=== PATIENT | female | born 1975 | race Caucasian/White ===

== ENCOUNTER 2018-12-18 09:40 | Inpatient (IN) | payer MEDICAID ==
[~2018-12-18] VITALS: Ht 160 cm; Wt 57.6 kg
[2018-12-18] VITALS (17 sets, daily range): BP systolic 93–141; BP diastolic 54–86; BMI 22.7
--- NOTE | 2018-12-18 09:58 | NUR ---
INTUBATED 21 @ THE LIP; BICARB GIVEN @ [phone]
--- NOTE | 2018-12-18 10:00 | NUR ---
TALKED TO BRIAN AT POISON CONTROL. INSTRUCT TO GIVE MEDS TO REVERSE TYLENOL, MONITOR PT FOR TACHACARDIA, AND DECREASED RESP.
[2018-12-18 10:05] LABS: BASOPHILS 0.1 % (0-2); EOSINOPHILS 0.4 % (0-7); HEMATOCRIT 39.4 % (36.0-48.0); HEMOGLOBIN 13.7 g/dL (12-16); IMMATURE GRANULOCYTES 0.1 % (0-5); LYMPHOCYTES 16.2 % (15-50); MCH 33.7 pg (26.0-34.0); MCHC 34.8 g/dL (31.0-37.0); MCV 96.8 fL (80.0-100.0); MEAN PLATELET VOLUME 11.6 fL (7.4-10.4); MONOCYTES 5.9 % (2-11); NEUTROPHILS 77.3 % (40-80); PLATELET COUNT 114 10x3/uL (130-400); RBC 4.07 10x6/uL (4.00-5.40); RDW 13.1 % (11.5-14.5); WBC 6.8 10x3/uL (4.8-10.8)
[2018-12-18 10:22] LABS: ALBUMIN 3.4 g/dL (3.4-5.0); ANION GAP 11.4 mmol/L (8-16); BILIRUBIN - TOTAL 0.16 mg/dL (0.2-1.3); CALCIUM 8.2 mg/dL (8.5-10.1); CARBON DIOXIDE 27.2 mmol/L (21.0-32.0); MAGNESIUM - SERUM 2.2 mg/dL (1.8-2.4); POTASSIUM - SERUM 3.6 mmol/L (3.5-5.1); PROTEIN - SERUM 6.5 g/dL (6.4-8.2)
[2018-12-18 10:32] LABS: UDS - AMPHET NEGATIVE QUAL (NEGATIVE); UDS - BARB POSITIVE QUAL (NEGATIVE); UDS - BENZO POSITIVE QUAL (NEGATIVE); UDS - COCAINE NEGATIVE QUAL (NEGATIVE); UDS - OPIATE NEGATIVE QUAL (NEGATIVE); UDS - PCP NEGATIVE QUAL (NEGATIVE); UDS - THC POSITIVE QUAL (NEGATIVE)
[2018-12-18 10:42] LABS: APPEARANCE CLEAR (CLEAR); BILIRUBIN NEGATIVE (NEGATIVE); COLOR YELLOW (YELLOW); GLUCOSE NEGATIVE (NEGATIVE); KETONE NEGATIVE (NEGATIVE); NITRITE POSITIVE (NEGATIVE); PROTEIN NEGATIVE (NEGATIVE); SPECIFIC GRAVITY 1.015 (1.005-1.020); UROBILINOGEN NORMAL (NORMAL)
[2018-12-18 10:49] LABS: RED CELLS - URINE NONE SEEN /hpf (0-5); WHITE CELLS - URINE 0-5 /hpf (0-5)
[2018-12-18 10:50] LABS: BACTERIA MANY /hpf (NONE SEEN); EPITHELIAL CELLS 0-5 /hpf (0-5)
--- NOTE | 2018-12-18 11:23 | NUR ---
CALLED LAB AND THEY WILL REDRAW TYLENOL LEVEL @ 1200.
--- NOTE | 2018-12-18 11:45 | NUR ---
PATIENT TRANSPORTED TO CT WITH RESPIRATORY STAFF TRACY, RADIOLOGY STAFF ELENA, AND RN JOSEPH. PATIENT ON OXYGEN AND CARDIAC, BP, AND O2 MONITORING. PATIENT THEN TRANSPORTED TO ROOM CV-5.
--- NOTE | 2018-12-18 12:09 | NUR ---
REC'D VIA STRETCHER FROM ER, SEDATED ON VENT S/P INTENTIONAL OD. WARM BLANKET PROVIDED.
[2018-12-18] MEDS ORDERED: LISINOPRIL20 MG PO (12:18)
[2018-12-18] MEDS ORDERED: XANAX1 MG PO (12:19)
[2018-12-18] MEDS ORDERED: PHENERGAN25 M1 PO (12:20)
[2018-12-18] MEDS ORDERED: BUTALB-APAP-CA1 EACH PO (12:21)
[2018-12-18] MEDS ORDERED: LEXAPRO10 MG (12:31)
[2018-12-18] MEDS ORDERED: MAXALT MLT10 MG/TAB PO (12:32)
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
--- NOTE | 2018-12-18 13:00 | NUR ---
FAMILY IN, TEARFUL-EMOTIONAL SUPPORT PROVIDED.
--- NOTE | 2018-12-18 15:00 | NUR ---
AWAKE- FOLLOWS COMMANDS W/ALL EXTREMITIES. OPENS EYES AT REQUEST. COUGHS/ GAGS- WILL TITRATE PROPOFOL- SEE FLOWSHEET.
[2018-12-18 15:11] LABS: INR 1.13 (0.85-1.17)
--- NOTE | 2018-12-18 16:00 | NUR ---
REASSESSED. CALM- PROPOFOL TITRATED UP TO 20 MCG/HR OVER LAST HOUR.
--- NOTE | 2018-12-18 19:30 | NUR ---
PT IS AWAKE AND AGGITATED. PROPOFOL BEING TITRATED FOR SEDATION.
[2018-12-19] VITALS (24 sets, daily range): BP systolic 85–147; BP diastolic 47–94; Ht 160 cm; Wt 57.6 kg
[2018-12-19 04:11] LABS: BASOPHILS 0.1 % (0-2); HEMATOCRIT 36.7 % (36.0-48.0); HEMOGLOBIN 12.5 g/dL (12-16); IMMATURE GRANULOCYTES 0.1 % (0-5); LYMPHOCYTES 22.3 % (15-50); MCH 32.8 pg (26.0-34.0); MCHC 34.1 g/dL (31.0-37.0); MCV 96.3 fL (80.0-100.0); MEAN PLATELET VOLUME 11.8 fL (7.4-10.4); MONOCYTES 6.8 % (2-11); NEUTROPHILS 69.7 % (40-80); PLATELET COUNT 103 10x3/uL (130-400); RBC 3.81 10x6/uL (4.00-5.40); RDW 13.3 % (11.5-14.5)
[2018-12-19 04:31] LABS: ALKALINE PHOSPHATASE 52 U/L (46-116); ALT (SGPT) 16 U/L (10-68); BILIRUBIN - TOTAL 0.24 mg/dL (0.2-1.3); CARBON DIOXIDE 23.4 mmol/L (21.0-32.0); CHLORIDE - SERUM 110 mmol/L (98-107); POTASSIUM - SERUM 3.1 mmol/L (3.5-5.1); PROTEIN - SERUM 5.9 g/dL (6.4-8.2); SODIUM 143 mmol/L (136-145); UREA NITROGEN 11 mg/dL (7-18)
[2018-12-19 04:35] LABS: CALC OSMOLALITY 282 mosm/kg (275-300); CREATININE - SERUM 0.6 mg/dL (0.6-1.3); GLUCOSE 83 mg/dL (74-106); eGFR NON AFRICAN AMERICAN > 90 mL/min (90-120)
--- NOTE | 2018-12-19 08:31 | NUR ---
RECEIVED PT FROM BELEM RAUSCH. PT RESTING IN BED AWAKE AND ALERT ON VENTILATOR CPAP MODE. VSS. WILL CHECK ORDERS.
--- NOTE | 2018-12-19 08:50 | NUR ---
PATIENT EXTUBATED AT THIS TIME. VSS. PT AWAKE ALERT AND ORIENTED.
--- NOTE | 2018-12-19 12:15 | NUR ---
RICHARD NOTIFIED AND SITTER ORDERED. SITTER AT BEDSIDE, NOTIFIED CHARGE NURSE AND ATTENDING IN REGARDS TO ASSESSMENT FINDINGS, RESOURCES GIVEN TO PT AND SAFETY PLAN INITIATED.
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
--- NOTE | 2018-12-19 16:37 | NUR ---
1100 VOICES NO COMPLAINTS
--- NOTE | 2018-12-19 16:39 | NUR ---
1300 SITTER REMAINS AT BEDSIDE
--- NOTE | 2018-12-19 16:39 | NUR ---
1500 SNACK SERVED PATIENT ON REG=ULAR DIET
--- NOTE | 2018-12-19 16:40 | NUR ---
7014 DR BOWEN AT BEDSIDE SPEAKING WITH PATIENT
--- NOTE | 2018-12-19 23:08 | NUR ---
PT ADMITS TO STILL FEELING DEPRESSED AND UNSURE OF SELF. SUICIDAL IDEATION WITHOUT A PLAN AT THIS TIME. DISCUSSED COPING SKILLS WITH PT. SITTER AT BEDSIDE FOR LINE OF SIGHT OBSERVATION.
[2018-12-20] VITALS (8 sets, daily range): BP systolic 116–161; BP diastolic 62–85
--- NOTE | 2018-12-20 01:37 | NUR ---
PATIENT UP TO [facility] TO HAVE BM. STATES SHE IS VERY GASSY AND BLOATED FEELING.
[2018-12-20 05:45] LABS: ALBUMIN 2.9 g/dL (3.4-5.0); ALKALINE PHOSPHATASE 53 U/L (46-116); ALT (SGPT) 18 U/L (10-68); BILIRUBIN - TOTAL 0.45 mg/dL (0.2-1.3); CALC OSMOLALITY 279 mosm/kg (275-300); CALCIUM 8.4 mg/dL (8.5-10.1); CARBON DIOXIDE 20.5 mmol/L (21.0-32.0); CHLORIDE - SERUM 109 mmol/L (98-107); CREATININE - SERUM 0.6 mg/dL (0.6-1.3); GLUCOSE 88 mg/dL (74-106); POTASSIUM - SERUM 3.3 mmol/L (3.5-5.1); PROTEIN - SERUM 6.1 g/dL (6.4-8.2); SODIUM 142 mmol/L (136-145); eGFR NON AFRICAN AMERICAN > 90 mL/min (90-120)
[2018-12-20 05:47] LABS: BASOPHILS 0.1 % (0-2); EOSINOPHILS 0.2 % (0-7); HEMATOCRIT 34.6 % (36.0-48.0); HEMOGLOBIN 11.9 g/dL (12-16); IMMATURE GRANULOCYTES 0.1 % (0-5); LYMPHOCYTES 11.2 % (15-50); MCH 33.2 pg (26.0-34.0); MCHC 34.4 g/dL (31.0-37.0); MCV 96.6 fL (80.0-100.0); MEAN PLATELET VOLUME 11.8 fL (7.4-10.4); NEUTROPHILS 83.4 % (40-80); PLATELET COUNT 95 10x3/uL (130-400); RBC 3.58 10x6/uL (4.00-5.40); RDW 12.9 % (11.5-14.5); UREA NITROGEN 7 mg/dL (7-18); WBC 9.3 10x3/uL (4.8-10.8)
--- NOTE | 2018-12-20 05:47 | NUR ---
PATIENT DENIES ANY NEEDS AT THIS TIME. SITTER IS AT DOORWAY OF PATIENTS ROOM. CALL LIGHT WITHIN REACH.
--- NOTE | 2018-12-20 06:37 | NUR ---
PT IS TEARFUL THIS MORNING AND CONFUSED ABOUT WHAT ALL HAPPENED. SHE STATED THAT SHE DOESN'T REMEMBER EVERYTHING THAT SHE TOOK. SHE STATED THAT SHE JUST TOOK ANYTHING SHE COULD GET HER HANDS ON. PT DENIES SI AND FEELS REMORSE FOR HER ACTIONS. COPING SKILLS DISCUSSED WITH PT. RAJ WILL CONTINUE TO DO LINE OF SIGHT OBERSERVATION.
[2018-12-20 07:02] LABS: PLATELET ESTIMATE DECREASED
--- NOTE | 2018-12-20 09:05 | NUR ---
NUTRITION F/U CHART REVIEWED, PT EXTUBATED AND ON REG DIET. WILL HONOR FOOD PREFERENCES, MONITOR PO INTAKE. RD FOLLOWING
--- NOTE | 2018-12-20 12:20 | MORECARE ---
CASE MANAGEMENT DISCHARGE SUMMARY PATIENT: ANGELA POLK UNIT: [id number] ADM DATE: 12/18/18 AGE: 43 : [birth year] SEX: F ROOM/BED: D.[facility]3 AUTHOR: AURELIA COE PHYSICIAN: REFERRING PHYSICIAN: MATT KUHN MD DATE OF SERVICE: 12/20/18 Discharge Plan Patient Name: ANGELA POLK Facility: [facility]:[place] : 1975 Planned Disposition: Anticipated Discharge Date: Discharge Date: Expected LOS: Initial Reviewer: [email or web address] Initial Review Date: 12/20/2018 Generated: 12/20/18 1:20 pm DCP- Discharge Planning Updated by [email or web address]: Opal Marino on 12/20/18 11:[address] Patient Name: ANGELA MARTINEZ Admission Status: ER Accout number: [id number] Admission Date: 12-18-2018 : 1975 Admission Diagnosis: Attending: MATT KUHN Current LOS: 2 Anticipated DC Date: Planned Disposition: Primary Insurance: MEDICAID [place] Discharge Planning Comments: SOON PATIENT IS MEDICALLY CLEARED I WILL CALL [facility] ADMIT BACK AT [phone] IN ORDER FOR THEM TO FIND PLACEMENT. I HAVE STARTED THE PROCESS. CM TO FOLLOW AND ASSIST. Biodiesel Plant Manager: Opal Marino Patient Name: ANGELA POLK Page 88198 at 1220 All edits/amendments must be made on the electronic document DICTATION DATE: 12/20/18 1220 WHEELCHAIR VAN OPERATOR FIRST RESPONDER: DM 12/20/18 1220 RPT#: [id number] DC DATE: STATUS: ADM IN [place] [address] [place] [address] END OF REPORT
--- NOTE | 2018-12-20 13:48 | MORECARE ---
CASE MANAGEMENT DISCHARGE SUMMARY PATIENT: ANGELA POLK UNIT: [id number] ADM DATE: 12/18/18 AGE: 43 : 76 SEX: F ROOM/BED: D.[facility]3 AUTHOR: AURELIA COE PHYSICIAN: REFERRING PHYSICIAN: MATT KUHN MD DATE OF SERVICE: 12/20/18 Discharge Plan Patient Name: ANGELA POLK Facility: [facility]:[place] : 1975 Planned Disposition: Anticipated Discharge Date: Discharge Date: Expected LOS: Initial Reviewer: [email or web address] Initial Review Date: 12/20/2018 Generated: 12/20/18 2:48 pm DCP- Discharge Planning Updated by [email or web address]: Opal Marino on 12/20/18 11:[address] Patient Name: ANGELA MARTINEZ Admission Status: ER Accout number: [id number] Admission Date: 12-18-2018 : 1975 Admission Diagnosis: Attending: MATT KUHN Current LOS: 2 Anticipated DC Date: Planned Disposition: Primary Insurance: MEDICAID [place] Discharge Planning Comments: SOON PATIENT IS MEDICALLY CLEARED I WILL CALL [facility] ADMIT BACK AT [phone] IN ORDER FOR THEM TO FIND PLACEMENT. I HAVE STARTED THE PROCESS. CM TO FOLLOW AND ASSIST. Intervention Specialist: Opal Marino External Providers External Provider: OTHER-OTHER Next Contact Date: Service Request Date: Service Type: Resolution: Reviewer: Comments: Last DP export: 12/20/18 11:20 am Patient Name: ANGELA POLK Page 70895 at 1348 All edits/amendments must be made on the electronic document DICTATION DATE: 12/20/18 1348 PHYSICAL THERAPIST ASSISTANT: ЕКАТЕРИНА 12/20/18 1348 RPT#: [id number] DC DATE: STATUS: ADM IN [facility] [address] [place] [address] END OF REPORT
--- NOTE | 2018-12-20 13:58 | MORECARE ---
CASE MANAGEMENT DISCHARGE SUMMARY PATIENT: ANGELA POLK UNIT: [id number] ADM DATE: 12/18/18 AGE: 43 : [birth year] SEX: F ROOM/BED: D.2313 AUTHOR: AURELIA COE PHYSICIAN: REFERRING PHYSICIAN: MATT KUHN MD DATE OF SERVICE: 12/20/18 Discharge Plan Patient Name: ANGELA POLK Facility: [facility]:[place] : 1975 Planned Disposition: Anticipated Discharge Date: Discharge Date: Expected LOS: Initial Reviewer: [email or web address] Initial Review Date: 12/20/2018 Generated: 12/20/18 2:58 pm Comments DCP- Discharge Planning Updated by [email or web address]: Opal Marino on 12/20/18 12:[address] Patient Name: ANGELA MARTINEZ Admission Status: ER Accout number: [id number] Admission Date: 12-18-2018 : 1975 Admission Diagnosis: Attending: MATT KUHN Current LOS: 2 Anticipated DC Date: Planned Disposition: Primary Insurance: MEDICAID [place] Discharge Planning Comments: SOON PATIENT IS MEDICALLY CLEARED I WILL CALL EASY ADMIT BACK AT [phone] IN ORDER FOR THEM TO FIND PLACEMENT. I HAVE STARTED THE PROCESS. CM TO FOLLOW AND ASSIST. Juvenile Counselor: Opal Marino Appended by Opal Marino on 12/20/2018 13:49 CDT: CM FAXED DOCUMENTS TO [facility] AT [phone] AND THEY ARE WORKING ON FINDING PSYCH PLACEMENT. CM TO FOLLOW AND ASSIST . Last DP export: 12/20/18 12:48 pm Patient Name: ANGELA POLK Page 73910 at 1358 All edits/amendments must be made on the electronic document DICTATION DATE: 12/20/18 1358 INVESTIGATOR CLAIMS: ЕКАТЕРИНА 12/20/18 1358 RPT#: [id number] DC DATE: STATUS: ADM IN [address] [address] END OF REPORT
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
--- NOTE | 2018-12-20 17:13 | NUR ---
0700 AWAKE ALERT VOICES NO COMPLAINTS ASSESSMENT COMPLETE
--- NOTE | 2018-12-20 17:14 | NUR ---
0900 APPETITE POOR, IV INFUSING AT NS AT 100ML/HR SITTER REMAINS AT BEDSIDE ROOM STRIPPED PER PROTOCOL
--- NOTE | 2018-12-20 17:15 | NUR ---
1100 RESTING QUIETLY IN BED
--- NOTE | 2018-12-20 17:17 | NUR ---
1500 MEDIUM LIQUID BM NOTED
--- NOTE | 2018-12-20 17:17 | NUR ---
1300 LUNCH TRAY SERVED APPETITE POOR
--- NOTE | 2018-12-20 17:18 | NUR ---
1700 VOIDED WITHOUT DIFFICULTY
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
--- NOTE | 2018-12-20 17:19 | NUR ---
1705 MARIA ELENA [facility] CALLED WITH ACCEPTANCE OF PATIENT INTOT THEIR PROGRAM
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
== END 2018-12-20 20:14 | DRG 917 ==
LOC: D.ER 09:40 → D.ICU 11:13 → D.CVICU 11:13 → D.ICU 12-19 08:06
PROVIDERS: Emergency Medicine; Internal Medicine Pulmonary Disease; ADMIT Internal Medicine Nephrology; ATTEND Internal Medicine Nephrology
PROC: 5A1935Z Respiratory Ventilation, Less than 24 Consecutive Hours (ICD-10-PCS; principal; 2018-12-18)
PROC: 0BH17EZ Insertion of Endotracheal Airway into Trachea, Via Natural or Artificial Opening (ICD-10-PCS; 2018-12-18)
DX: T42.4X2A Poisoning by benzodiazepines, intentional self-harm, initial encounter (principal); J96.02 Acute respiratory failure with hypercapnia; G92 Toxic encephalopathy; E87.2 Acidosis; N39.0 Urinary tract infection, site not specified; T42.3X2A Poisoning by barbiturates, intentional self-harm, initial encounter; T39.1X2A Poisoning by 4-Aminophenol derivatives, intentional self-harm, initial encounter; D69.6 Thrombocytopenia, unspecified; F43.10 Post-traumatic stress disorder, unspecified; F41.9 Anxiety disorder, unspecified; I10 Essential (primary) hypertension